=== PATIENT | female | born 1995 | race Caucasian/White ===

== ENCOUNTER 2019-04-30 07:00 | Emergency (ER) | payer OTHER ==
[~2019-04-30] VITALS: Ht 170.2 cm; Wt 63.5 kg
[~2019-04-30 07:00] MED LIST: ATIVAN0.5 MG PO; HYDROCODONE-AP1 EAC6 PO; IBUPROFEN 200200 M1 PO; IBUPROFEN 800800 M1 PO; MEDROLDOSEPACK PO; ONDANSETRON HCL4 M2 PO; TORADOL 10 MG T10 MG PO; VISTARIL 25 MG25 M1 PO; ZOLOFT50 MG PO
[2019-04-30] MEDS ORDERED: CELEXA 20 MG TA20 MG PO (07:04)
[2019-04-30] MEDS ORDERED: LORAZEPAM 1 MG T1 MG PO (07:04)
[2019-04-30] MEDS ORDERED: AUGMENTIN 875-1 EACH PO (07:05)
[2019-04-30 08:03] LABS: URINE BILIRUBIN NEGATIVE (Negative); URINE BLOOD 3+ (Negative); URINE CLARITY CLEAR; URINE COLOR YELLOW; URINE GLUCOSE-RANDOM NEGATIVE (Negative); URINE KETONES NEGATIVE (Negative); URINE LEUKOCYTES-REFLEX NEGATIVE (Negative); URINE NITRITE-REFLEX NEGATIVE (Negative); URINE PROTEIN NEGATIVE (Negative); URINE UROBILINOGEN 0.2 E.U./dl (0.2-1.0)
[2019-04-30 08:04] LABS: ABSOLUTE EOSINOPHILS 0.1 thou/uL (0.0-0.7); ABSOLUTE LYMPHOCYTES 1.8 thou/uL (0.8-5.3); ABSOLUTE MONOCYTES 0.3 thou/uL (0.0-1.2); ABSOLUTE NEUTROPHILS 5.5 thou/uL (1.6-8.1); BASOPHILS 0.5 %; EOSINOPHILS 0.8 %; HEMOGLOBIN 13.8 gm/dL (12.0-15.0); LYMPHOCYTES 23.3 %; MCH 30.5 pg (26.0-34.0); MCHC 34.4 g/dL (28.0-37.0); MCV 88.7 fL (80.0-100.0); MONOCYTES 4.5 %; MPV 8.7 fl. (7.2-11.1); NUCLEATED RBCS 0 /100WBC; PLATELET COUNT* 243 thou/uL (150-400); POLYS 70.9 %; RBC 4.51 mil/uL (4.20-5.00); RDW-CV 12.5 % (10.5-14.5); WBC 7.7 thou/uL (4.0-11.0)
[2019-04-30 08:13] LABS: BACTERIA-REFLEX 1-9 Few /HPF (None Seen); CASTS None Seen /LPF (None Seen); CRYSTALS None Seen /LPF (None Seen); MUCUS None Seen strn/LPF (None Seen); SQUAMOUS 4-10 Moderate /LPF (0-3); URINE RBC >20 Many /HPF (0-2); URINE WBC-REFLEX 0-5 Rare /HPF (0-5)
[2019-04-30 08:18] LABS: CALCIUM 8.1 mg/dL (8.5-10.1); CREATININE 0.8 mg/dL (0.6-1.3); POTASSIUM 4.2 mmol/L (3.5-5.1)
[2019-04-30 08:22] LABS: ALBUMIN 3.3 g/dL (3.4-5.0); TOTAL BILIRUBIN 0.8 mg/dL (<0.1-1.0); TOTAL PROTEIN 5.8 g/dL (6.4-8.2)
[2019-04-30] MEDS ORDERED: NORCO 5-325 TA1 EAC1 PO ×2 (09:19→09:32)
[2019-04-30] MEDS ORDERED: ZOFRAN ODT4 MG DISSOLVE (09:32)
[2019-04-30] MEDS ORDERED: FLOMAX0.4 MG PO (09:32)
[2019-04-30] MEDS ORDERED: IBUPROFEN 800800 M1 PO (09:32)
[2019-04-30 09:49] VITALS: BP 112/58
[2019-05-08] MEDS ORDERED: NORCO 5-325 TA1 EAC1 PO (08:19)
[2019-05-08] MEDS ORDERED: CIPRO500 M1 PO (08:23)
[2019-05-08] MEDS ORDERED: OXYBUTYNIN 5 MG5 M2 PO ×2 (08:24)
[2019-05-08] MEDS ORDERED: PYRIDIUM200 MG PO (08:25)
[2019-05-08] MEDS ORDERED: FLOMAX0.4 MG PO (08:27)
[2019-05-08] MEDS ORDERED: LORAZEPAM 1 MG T1 MG PO (08:30)
[2019-05-08] MEDS ORDERED: CELEXA 20 MG TA20 MG PO (08:30)
== END 2019-04-30 09:50 | disposition home or self-care (01) ==
LOC: M.ERS 07:00
PROVIDERS: Emergency Medicine Emergency Medical Services
DX: N20.0 Calculus of kidney (principal); F41.9 Anxiety disorder, unspecified; F32.9 Major depressive disorder, single episode, unspecified; G89.29 Other chronic pain

== ENCOUNTER → 2019-05-08 | Day surgery (SDC) | payer OTHER ==
[~2019-05-08] MED LIST changes: +AUGMENTIN 875-1 EACH PO; +CELEXA 20 MG TA20 MG PO; +CIPRO500 M1 PO; +FLOMAX0.4 MG PO; +LORAZEPAM 1 MG T1 MG PO; +NORCO 5-325 TA1 EAC1 PO; +OXYBUTYNIN 5 MG5 M2 PO; +PYRIDIUM200 MG PO; +ZOFRAN ODT4 MG DISSOLVE
--- NOTE | 2019-05-13 13:33 | OP ---
[address] [address] OPERATIVE REPORT Name: YANET HERMAN Room: [facility]#: [id number] Admission: 05/08/19 Attend Phys: Deep Beasley MD Discharge: Date of : 89 Report #: [id number] THIS REPORT FOR: //name// CC: Deep STANLEY DATE OF SERVICE: 05/08/2019 PREOPERATIVE DIAGNOSIS: Left nephrolithiasis. POSTOPERATIVE DIAGNOSIS: Left nephrolithiasis. PROCEDURES PERFORMED: 1. Cystoscopy. 2. Left retrograde pyelogram. 3. Left ureteroscopy with stone basket extraction. 4. Left ureteral stent placement. STAFF: Dr. Deep Beasley COMPLICATIONS: None. DRAINS: A 4.8-Djiboutian x 26-cm left ureteral stent. ESTIMATED BLOOD LOSS: 0 mL. INDICATION FOR PROCEDURE: The patient is a 24-year-old female who I saw in the office yesterday with left-sided flank pain and was found to have a 6 mm distal left ureteral stone on a CT performed one week ago at [place]. We reviewed her options including observation with medical expulsive therapy versus ureteroscopy versus shock wave lithotripsy. Ultimately, she was opting for ureteroscopy. DESCRIPTION OF PROCEDURE: On 05/08/2019, after consent was obtained, the patient was taken to the operating room and placed in supine position. She was then placed under general anesthesia. She received preoperative IV Cipro for antibiotic coverage. She was then placed in dorsal lithotomy and her genitals were prepped and draped in normal sterile fashion. I began the procedure by inserting a 22.5-Djiboutian rigid cystoscope transurethrally without any difficulty, once in the bladder, identified the left ureteral orifice. This was then cannulated with a sensor wire, which was passed up to the upper pole under fluoroscopic guidance. I then went through the cystoscope and inserted a semirigid ureteroscope. I was able to pass this up alongside the sensor wire into the distal ureter where I readily identify the stone. A 1.5 nitinol basket was utilized to grasp the [place] [address] OPERATIVE REPORT Name: YANET HERMAN Room: [facility]#: [id number] Admission: 05/08/19 Attend Phys: Deep Beasley MD Discharge: Date of : 89 Report #: [id number] out of the urethra without any difficulty. This was passed off as specimen. I then made a final pass of the ureteroscope up to the level of the UPJ. There was no evidence of any further stone burden. At this point, I went through the ureteroscope and backloaded a 5-Djiboutian open-ended stent over the sensor wire. A retrograde pyelogram demonstrated a normal caliber collecting system without any further stones, filling defects or extravasation. Sensor wire was then replaced. I then backloaded the cystoscope over the sensor wire, selected a 4.8 [place]ib[place]ian x 26-cm stent and passed up in the renal pelvis under fluoroscopic guidance, had a good coil in the urinary bladder under direct visual guidance. The patient's bladder was emptied. She was awakened from anesthesia. <ELECTRONICALLY SIGNED> By: Deep Beasley MD 05/13/19 [id number] Beasley MD /nt
[2019-05-20 08:11] LABS: STONE CA OXALATE MONOHYDRATE 75 % (()); STONE CALCIUM PHOSPHATE 20 % (()); STONE COLOR Brown (()); STONE SIZE 5x4x2 mm (())
== END | disposition home or self-care (01) ==
LOC: M.SUR 06:00
PROVIDERS: Urology
DX: N20.1 Calculus of ureter (principal); G89.29 Other chronic pain; F32.9 Major depressive disorder, single episode, unspecified; F41.9 Anxiety disorder, unspecified; Z98.890 Other specified postprocedural states; Z79.899 Other long term (current) drug therapy; Z87.442 Personal history of urinary calculi; Z79.891 Long term (current) use of opiate analgesic

== ENCOUNTER 2019-07-06 17:52 | Emergency (ER) | payer OTHER ==
[~2019-07-06] VITALS: Ht 170.2 cm; Wt 65.8 kg
[~2019-07-06 17:52] MED LIST changes: +CELEXA40 MG PO
[2019-07-06] MEDS ORDERED: KLONOPIN1 MG PO (18:02)
[2019-07-06] MEDS ORDERED: MINIPRESS1 MG PO (18:03)
[2019-07-06 20:01] LABS: ABSOLUTE BASOPHILS 0.1 thou/uL (0.0-0.2); ABSOLUTE EOSINOPHILS 0.1 thou/uL (0.0-0.7); ABSOLUTE MONOCYTES 0.5 thou/uL (0.0-1.2); ABSOLUTE NEUTROPHILS 3.1 thou/uL (1.6-8.1); BASOPHILS 1.1 %; EOSINOPHILS 1.5 %; HEMATOCRIT 40.2 % (37.0-47.0); HEMOGLOBIN 13.8 gm/dL (12.0-15.0); LYMPHOCYTES 43.6 %; MCH 30.4 pg (26.0-34.0); MCHC 34.4 g/dL (28.0-37.0); MCV 88.6 fL (80.0-100.0); MONOCYTES 7.4 %; MPV 8.6 fl. (7.2-11.1); NUCLEATED RBCS 0 /100WBC; PLATELET COUNT* 278 thou/uL (150-400); POLYS 46.4 %; RBC 4.54 mil/uL (4.20-5.00); RDW-CV 12.9 % (10.5-14.5); WBC 6.8 thou/uL (4.0-11.0)
[2019-07-06 20:03] LABS: URINE BILIRUBIN NEGATIVE (Negative); URINE BLOOD NEGATIVE (Negative); URINE CLARITY CLEAR; URINE COLOR YELLOW; URINE GLUCOSE-RANDOM NEGATIVE (Negative); URINE KETONES NEGATIVE (Negative); URINE LEUKOCYTES-REFLEX NEGATIVE (Negative); URINE NITRITE-REFLEX NEGATIVE (Negative); URINE PROTEIN NEGATIVE (Negative); URINE UROBILINOGEN 0.2 E.U./dl (0.2-1.0)
[2019-07-06 20:13] LABS: CALCIUM 8.2 mg/dL (8.5-10.1); CREATININE 0.7 mg/dL (0.6-1.3); POTASSIUM 3.8 mmol/L (3.5-5.1)
[2019-07-06 20:17] LABS: ALBUMIN 3.7 g/dL (3.4-5.0); TOTAL BILIRUBIN 0.5 mg/dL (<0.1-1.0); TOTAL PROTEIN 6.5 g/dL (6.4-8.2)
[2019-07-06 22:35] VITALS: BP 107/70
== END 2019-07-06 22:35 | disposition home or self-care (01) ==
LOC: M.ERS 17:52
PROVIDERS: Nurse Practitioner Family
DX: R10.12 Left upper quadrant pain (principal); F41.9 Anxiety disorder, unspecified; F32.9 Major depressive disorder, single episode, unspecified; Z87.442 Personal history of urinary calculi

== ENCOUNTER 2019-12-30 09:04 | Emergency (ER) | payer OTHER ==
[~2019-12-30] VITALS: Ht 170.2 cm; Wt 63.5 kg
[~2019-12-30 09:04] MED LIST changes: +KLONOPIN1 MG PO; +MINIPRESS1 MG PO
[2019-12-30] MEDS ORDERED: BENTYL 10 MG CA10 MG PO (09:14)
[2019-12-30 10:20] VITALS: BP 129/86
== END 2019-12-30 10:28 | disposition home or self-care (01) ==
LOC: M.ERS 09:04
DX: J06.9 Acute upper respiratory infection, unspecified (principal); Z20.828 Contact with and (suspected) exposure to other viral communicable diseases; K58.9 Irritable bowel syndrome, unspecified; Z87.442 Personal history of urinary calculi

== ENCOUNTER 2020-02-08 12:14 | Emergency (ER) | payer OTHER ==
[~2020-02-08] VITALS: Ht 170.2 cm; Wt 63.5 kg
[~2020-02-08 12:14] MED LIST changes: +BENTYL 10 MG CA10 MG PO
[2020-02-08] MEDS ORDERED: NORCO 5-325 TA1 EAC2 PO (13:51)
[2020-02-08] MEDS ORDERED: ZOFRAN ODT4 MG DISSOLVE (14:02)
[2020-02-08 14:06] VITALS: BP 100/62
== END 2020-02-08 14:06 | disposition home or self-care (01) ==
LOC: M.ERS 12:14
DX: M53.3 Sacrococcygeal disorders, not elsewhere classified (principal); K58.9 Irritable bowel syndrome, unspecified; G89.29 Other chronic pain; F41.9 Anxiety disorder, unspecified; F32.9 Major depressive disorder, single episode, unspecified